=== PATIENT | male | born 1970 ===

== ENCOUNTER 2017-09-08 13:38 | Emergency (ER) | payer MEDICARE, OTHER ==
[2017-09-08 13:45] VITALS: RESP 18
[2017-09-08] MEDS ORDERED: Ketamine 50 mg/ml Inj (10 ml) ONE (14:06)
[2017-09-08] MEDS ORDERED: Propofol 10 mg/ml Inj (20 ML) ONE (14:20)
[2017-09-08] MEDS ORDERED: Propofol 10 mg/ml Inj (20 ML) IV ONE (14:31)
[2017-09-08] MEDS ORDERED: Ketamine 50 mg/ml Inj (10 ml) IV ONE (14:31)
[2017-09-08] MEDS ORDERED: Sodium Chloride 0.9% 1,000 ML IV STA (14:31)
--- NOTE | 2017-09-08 14:40 | ED PDOC ---
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 Patient reports he fell off a ladder and sustained a left shoulder injury and is unable to move arm. He states he has a history of left shoulder dislocation. Patient denies any other injuries or medical complaints. PMD: none provided Past Medical History Reviewed: Historical Data, Nursing Documentation, Vital Signs Vital Signs: Last Vital Signs Temp 98.4 F 09/08/17 13:41 Pulse 110 H 09/08/17 13:41 Resp 18 09/08/17 13:41 BP 122/89 09/08/17 13:41 Pulse Ox 97 09/08/17 13:41 - Medical History PMH: No Chronic Diseases - Surgical History Surgical History: No Surg Hx - Family History Family History: States: Unknown Family Hx - Home Medications Home Medications: Ambulatory Orders Medication Instructions Recorded traMADol [Ultram] 50 mg PO Q8 #10 tab 09/08/17 - Allergies Allergies/Adverse Reactions: Allergies Allergy/AdvReac Type Severity Reaction Status Date / Time No Known Allergies Allergy Verified 09/08/17 13:41 Review of Systems ROS Statement: Except As Marked, All Systems Reviewed And Found Negative Musculoskeletal: Positive for: Shoulder Pain (left) Physical Exam - Reviewed Nursing Documentation Reviewed: Yes Vital Signs Reviewed: Yes - Physical Exam Appears: Positive for: Non-toxic, No Acute Distress Head Exam: Positive for: ATRAUMATIC, NORMOCEPHALIC Skin: Positive for: Normal Color, Warm, Dry Eye Exam: Positive for: EOMI, Normal appearance, PERRL Neck: Positive for: Normal, Painless ROM, Supple Pulses-Radial (L): 2+ (/4) Extremity: Positive for: Other ( left shoulder anterior inferior deformity) Neurologic/Psych: Positive for: Alert, Oriented (x3), Other (able to move fingers, no wrist drop ). Negative for: Motor/Sensory Deficits - ECG O2 Sat by Pulse Oximetry: 97 (RA) Pulse Ox Interpretation: Normal - Progress Re-evaluation Time: 15:45 Condition: Re-examined, Improved (Radial pulse 2/4 no motor or sensory deficits. Neurologically has eturned to baseline. Awake alert oriented x 3) Medical Decision Making Medical Decision Making: Time: 14:31 Initial Plan: --Propofol 80mg IV --Ketalar 40 mg IV --NS --Left shoulder XR Time: 15:11 Left shoulder XR: FINDINGS: BONES: There is some concavity to the humeral head which may relate to a Hill-Sachs lesion better appreciated on the pre reduction image. . The humeral head is returned to its expected alignment with the glenoid fossa. Anterior glenoid rim orthopedic changes noted JOINTS: Glenohumeral and acromioclavicular mild osteoarthritis. SOFT TISSUES: Normal. OTHER FINDINGS: None. IMPRESSION: Interval reduction of a prior left anterior inferior humeral dislocation from glenoid fossa. Probable Hill-Sachs lesion most compatible with history of multiple prior anterior shoulder dislocations. Scribe Attestation: Documented by Diane Mallory, acting as a scribe for Jus Lindquist MD Provider Scribe Attestation: All medical record entries made by the Scribe were at my direction and personally dictated by me. I have reviewed the chart and agree that the record accurately reflects my personal performance of the history, physical exam, medical decision making, and the department course for this patient. I have also personally directed, reviewed, and agree with the discharge instructions and disposition. Procedures - Joint Reduction Joint Reduction Site: shoulder (L) Post Joint Reduction Film: joint reduced Progress: Joint reduction was performed on left shoulder. Reduced using traction with PA ( Setu Duran) performing procedure. Patient received 80 mg of Propofol. Shoulder reduced. Post reduction films viewed and radial pulse 2+/4 with no motor or sensory deficits post procedure. Disposition - Clinical Impression Clinical Impression: Shoulder dislocation - Patient ED Disposition Is Patient to be Admitted: No Counseled Patient/Family Regarding: Studies Performed, Diagnosis, Need For Followup, Rx Given - Disposition Referrals: Lynn Schulz MD [Staff Provider] - Disposition: Routine/Home Disposition Time: 15:46 Condition: FAIR Prescriptions: traMADol [Ultram] 50 mg PO Q8 #10 tab Instructions: Shoulder Dislocation, Moderate Sedation in Adults Forms: [facility] (Latvian)
--- NOTE | 2017-09-08 15:12 | RAD ---
PROCEDURE: Radiographs of the Left Shoulder HISTORY: Post reduction COMPARISON: Pre reduction images FINDINGS: BONES: There is some concavity to the humeral head which may relate to a Hill-Sachs lesion better appreciated on the pre reduction image. . The humeral head is returned to its expected alignment with the glenoid fossa. Anterior glenoid rim orthopedic changes noted JOINTS: Glenohumeral and acromioclavicular mild osteoarthritis. SOFT TISSUES: Normal. OTHER FINDINGS: None. IMPRESSION: Interval reduction of a prior left anterior inferior humeral dislocation from glenoid fossa. Probable Hill-Sachs lesion most compatible with history of multiple prior anterior shoulder dislocations.
--- NOTE | 2017-09-08 15:14 | RAD ---
PROCEDURE: Radiographs of the Left Shoulder HISTORY: fall from ladder COMPARISON: No prior. FINDINGS: BONES: The humeral head is anterior and inferiorly displaced relative to the glenoid fossa- a divot of the humeral head compatible with a Hill-Sachs lesion noted. Anterior glenoid rim orthopedic changes probably relating to prior [place] pathology JOINTS: Glenohumeral and acromioclavicular mild osteoarthritis. SOFT TISSUES: Normal. OTHER FINDINGS: None. IMPRESSION: The humeral head is anterior and inferiorly displaced relative to the glenoid fossa- a divot of the humeral head compatible with a Hill-Sachs lesion noted. Anterior glenoid rim orthopedic changes probably relating to prior [place] pathology
[2017-09-08 17:37] VITALS: BP 136/91; PULSE 76; TEMP 98; O2SAT 100
== END 2017-09-08 16:30 | disposition home or self-care (01) ==
LOC: H.ER 13:38
DX: S43.005A Unspecified dislocation of left shoulder joint, initial encounter (principal); W11.XXXA Fall on and from ladder, initial encounter; Y92.89 Other specified places as the place of occurrence of the external cause
CPT/HCPCS: 23655; 73020; 73030; 96374; 96375; 99285; J1885; J2270; J2704; J7030